=== PATIENT | female | born 1990 | race Caucasian/White ===

== ENCOUNTER 2016-08-28 19:05 | Emergency (ER) | payer BC, OTHER ==
[2016-08-28] MEDS ORDERED: Sodium Chloride 0.9% 1,000 ML IV ONE ×2 (19:28→19:29)
[2016-08-28] MEDS ORDERED: Ondansetron 4 MG/2 ML SDV IVPUSH ONE (19:30)
[2016-08-28] MEDS ORDERED: HYDROmorphone 1 MG/ML Syringe IVPUSH ONE (19:30)
[2016-08-28] MEDS ORDERED: Ketorolac 30 MG/ML SDV IVPUSH ONE (19:30)
--- NOTE | 2016-08-28 19:34 | EDM.PDOC ---
ED HPI GENERAL MEDICAL PROBLEM - General Chief Complaint: ENT Problem Stated Complaint: PT HAS SORE THROAT Time Seen by Provider: 08/28/16 19:25 - History of Present Illness INITIAL COMMENTS - FREE TEXT/NARRATIVE: HISTORY AND PHYSICAL: History of present illness: Patient 26-year-old female who is status post tonsillectomy last Friday presents with a concern of decreased by mouth intake and generalized weakness she denies fever chills nausea vomiting she has been using Tylenol with hydrocodone for pain without significant improvement. She denies abdominal pain chest pain extremity pain or other concern Review of systems: As per history of present illness and below otherwise all systems reviewed and negative. Past medical history: As per history of present illness and as reviewed below otherwise noncontributory. Surgical history: As per history of present illness and as reviewed below otherwise noncontributory. Social history: No reported history of drug or alcohol abuse. Family history: As per history of present illness and as reviewed below otherwise noncontributory. Physical exam: HEENT: Atraumatic, normocephalic, pupils reactive, negative for conjunctival pallor or scleral icterus, mucous membranes dry, throat with normal postop granular plaques no bleeding no peritonsillar fullness no uvular deviation, neck supple, nontender, trachea midline. Lungs: Clear to auscultation, breath sounds equal bilaterally, chest nontender. Heart: S1S2, regular, negative for clicks, rubs, or JVD. Abdomen: Soft, nondistended, nontender. Negative for masses or hepatosplenomegaly. Negative for costovertebral tenderness. Pelvis: Stable nontender. Genitourinary: Deferred. Rectal: Deferred. Extremities: Atraumatic, negative for cords or calf pain. Neurovascular unremarkable. Neuro: Awake, alert, oriented. Cranial nerves II through XII unremarkable. Cerebellum unremarkable. Motor and sensory unremarkable throughout. Exam nonfocal. Diagnostics: CBC CMP hCG Therapeutics: Normal saline 2 L bolus Dilaudid 1 mg IV Zofran 4 mg IV Toradol 30 mg IV Impression: #1 observation status post tonsillectomy #2 postoperative pain #3 dehydration Definitive disposition and diagnosis as appropriate pending reevaluation and review of above. Throat Pain Score (Numeric/FACES): 10 - Related Data Allergies Allergy/AdvReac Type Severity Reaction Status Date / Time No Known Allergies Allergy Verified 08/28/16 19:25 Home Meds: Home Meds . [No Known Home Meds] 08/28/16 [History] Past Medical History - Past Health History Medical/Surgical History: Denies Medical/Surgical History - Infectious Disease History Infectious Disease History: Reports: Chicken Pox - Past Surgical History Female Surgical History: Reports: Section Social & Family History - Family History Family Medical History: Noncontributory - Tobacco Use Smoking Status *Q: Never Smoker Second Hand Smoke Exposure: No - Caffeine Use Caffeine Use: Reports: None - Alcohol Use Days Per Week of Alcohol Use: 0 Number of Drinks Per Day: 0 Total Drinks Per Week: 0 - Recreational Drug Use Recreational Drug Use: No Drug Use in Last 12 Months: No ED ROS GENERAL - Review of Systems Review Of Systems: ROS reveals no pertinent complaints other than HPI. ED EXAM, GENERAL - Physical Exam Exam: See Below (See dictation) Course - Vital Signs Last Recorded V/S: Last Vital Signs Temp 36.5 C 08/28/16 19:15 Pulse 83 08/28/16 20:54 Resp 18 08/28/16 20:54 BP 95/45 L 08/28/16 20:54 Pulse Ox 97 08/28/16 20:54 - Orders/Labs/Meds Labs: Laboratory Tests 08/28/16 08/28/16 08/28/16 Range/Units 19:56 19:56 19:56 WBC 9.67 (4.0-11.0) K/uL RBC 4.85 (4.30-5.90) M/uL Hgb 13.2 (12.0-16.0) g/dL Hct 39.8 (36.0-46.0) % MCV 82.1 (80.0-98.0) fL MCH 27.2 (27.0-32.0) pg MCHC 33.2 (31.0-37.0) g/dL RDW Std Deviation 40.6 (28.0-62.0) fl RDW Coeff of Vern 14 (11.0-15.0) % Plt Count 377 (150-400) K/uL MPV 9.10 (7.40-12.00) fL Neut % (Auto) 59.2 (48.0-80.0) % Lymph % (Auto) 31.6 (16.0-40.0) % [place] % (Auto) 7.9 (0.0-15.0) % Eos % (Auto) 1.1 (0.0-7.0) % Baso % (Auto) 0.2 (0.0-1.5) % Neut # (Auto) 5.7 (1.4-5.7) K/uL Lymph # (Auto) 3.1 H (0.6-2.4) K/uL [place] # (Auto) 0.8 (0.0-0.8) K/uL Eos # (Auto) 0.1 (0.0-0.7) K/uL Baso # (Auto) 0.0 (0.0-0.1) K/uL Nucleated RBC % 0.0 /100WBC Nucleated RBCs # 0 K/uL Sodium 139 (136-146) mmol/L Potassium 3.9 (3.5-5.1) mmol/L Chloride 108 (98-110) mmol/L Carbon Dioxide 21 (21-31) mmol/L BUN 9 (6.0-23.0) mg/dL Creatinine 0.8 (0.6-1.5) mg/dL Est Cr Clr Drug Dosing 109.38 mL/min Estimated GFR (MDRD) > 60.0 ml/min Glucose 88 (60-110) mg/dL Calcium 9.1 (8.8-10.8) mg/dL Total Bilirubin 0.4 (0.1-1.5) mg/dL AST 17 (5-40) IU/L ALT 15 (8-54) IU/L Alkaline Phosphatase 64 (40-150) Total Protein 7.5 (6.0-8.0) g/dL Albumin 4.1 (3.5-5.0) g/dL Globulin 3.4 (2.0-3.5) g/dL Albumin/Globulin Ratio 1.2 L (1.3-2.8) HCG, Qual NEGATIVE (NEG) Meds: Medications Discontinued Medications Generic Name Dose Route Start Last Admin Trade Name Freq PRN Reason Stop Dose Admin Hydromorphone HCl 1 mg 08/28/16 19:30 08/28/16 20:01 Dilaudid IVPUSH 08/28/16 19:31 1 mg ONETIME ONE Administration Sodium Chloride 1,000 mls @ 999 mls/hr 08/28/16 19:28 08/28/16 19:56 Normal Saline IV 08/28/16 20:28 999 mls/hr .Bolus ONE Administration Sodium Chloride 1,000 mls @ 999 mls/hr 08/28/16 19:29 08/28/16 19:57 Normal Saline IV 08/28/16 20:29 999 mls/hr .Bolus ONE Administration Ketorolac Tromethamine 30 mg 08/28/16 19:30 08/28/16 20:00 Toradol IVPUSH 08/28/16 19:31 30 mg ONETIME ONE Administration Ondansetron HCl 4 mg 08/28/16 19:30 08/28/16 19:58 Zofran IVPUSH 08/28/16 19:31 4 mg ONETIME ONE Administration Departure - Departure Time of Disposition: 21:05 Disposition: Home, Self-Care 01 Condition: Good Clinical Impression: History of tonsillectomy, Dehydration, Postoperative pain - Discharge Information Forms: ED Department Discharge Additional Instructions: The following information is given to patients seen in the emergency department who are being discharged to home. This information is to outline your options for follow-up care. We provide all patients seen in our emergency department with a follow-up referral. The need for follow-up, as well as the timing and circumstances, are variable depending upon the specifics of your emergency department visit. If you don't have a primary care physician on staff, we will provide you with a referral. We always advise you to contact your personal physician following an emergency department visit to inform them of the circumstance of the visit and for follow-up with them and/or the need for any referrals to a consulting specialist. The emergency department will also refer you to a specialist when appropriate. This referral assures that you have the opportunity for followup care with a specialist. All of these measure are taken in an effort to provide you with optimal care, which includes your followup. Under all circumstances we always encourage you to contact your private physician who remains a resource for coordinating your care. When calling for followup care, please make the office aware that this follow-up is from your recent emergency room visit. If for any reason you are refused follow-up, please contact the [facility] emergency department at and asked to speak to the emergency department charge nurse. Continue current medications push fluids follow-up with primary medical doctor/ ENT return as needed as discussed
[2016-08-28 20:25] LABS: CHLORIDE,CL 108 mmol/L (98-110); SODIUM,NA 139 mmol/L (136-146)
[2016-08-28 21:30] VITALS: BP 120/66
== END 2016-08-28 21:30 | disposition home or self-care (01) ==
LOC: MW.ED 19:05
DX: G89.18 Other acute postprocedural pain (principal); E86.0 Dehydration; Z98.890 Other specified postprocedural states
CPT/HCPCS: 36415; 80053; 84703; 85025; 96361; 96374; 96375; 99283; J1170; J1885; J2405; J7040; 99284

== ENCOUNTER 2016-09-04 19:14 | Emergency (ER) | payer BC ==
[2016-09-04 19:27] VITALS: BP 126/85
== END 2016-09-04 19:32 | disposition left against medical advice (07) ==
LOC: MW.ED 19:14
DX: Z53.21 Procedure and treatment not carried out due to patient leaving prior to being seen by health care provider (principal)

== ENCOUNTER 2018-06-02 16:44 | Emergency (ER) | payer MEDICAID | END 2018-06-02 17:25 | disposition left against medical advice (07) | LOC: MW.ED 16:44 | DX: Z53.21 Procedure and treatment not carried out due to patient leaving prior to being seen by health care provider (principal) | CPT/HCPCS: 99281 ==

== ENCOUNTER 2018-07-10 04:49 | Inpatient (IN) | payer MEDICAID ==
[2018-07-10] MEDS ORDERED: Sodium Chloride 0.9% 2.5 ML Syringe FLUSH PRN (04:52)
[2018-07-10] MEDS ORDERED: Citric Acid/Sodium Citrate Solution 30 ML Cup PO ONE (04:52)
[2018-07-10] MEDS ORDERED: Sodium Chloride 0.9% 10 ML SDV IV PRN (04:52)
[2018-07-10] MEDS ORDERED: Sodium Chloride 0.9% 10 ML Syringe FLUSH PRN (04:52)
[2018-07-10] MEDS ORDERED: Oxytocin/0.9 % Sodium Chloride 30 UNIT/500 ML BAG IV SCH (05:00)
[2018-07-10] MEDS: Lactated Ringers 1,000 ML IV SCH ×3 (06:07→07:36)
[2018-07-10] MEDS ORDERED: Morphine PF 10 MG/10 ML SDV ONE (06:18)
--- NOTE | 2018-07-10 06:31 | PCM.PREANE ---
Preanesthetic Assessment - Anesthesia/Transfusion/Family Hx Anesthesia History: Prior Anesthesia Reaction (high spinal 4 years ago with last c/s) Type of Anesthesia Reaction: Other (see below) Other Type of Anesthesia Reaction Comment: Denies any known problem in past, no known family history,"motion sickness" Family History of Anesthesia Reaction: No Transfusion History: No Prior Transfusion(s) Intubation History: Unknown - Review of Systems General: No Symptoms Pulmonary: No Symptoms Cardiovascular: No Symptoms Gastrointestinal: Other (morbid obesity) Neurological: No Symptoms Other: Reports: None - Physical Assessment NPO Status Date: 07/10/18 NPO Status Time: 00:00 Height: 5 ft 7 in Weight: 303 kg ASA Class: 3 Mental Status: Alert & Oriented x3 Airway Class: Mallampati = 2 Dentition: Reports: Normal Dentition ROM/Head Extension: Full Lungs: Clear to Auscultation, Normal Respiratory Effort Cardiovascular: Regular Rate, Regular Rhythm - Lab Values: Laboratory Last Values WBC 12.04 K/uL (4.0-11.0) H 07/10/18 06:01 RBC 4.25 M/uL (4.30-5.90) L 07/10/18 06:01 Hgb 10.9 g/dL (12.0-16.0) L 07/10/18 06:01 Hct 34.2 % (36.0-46.0) L 07/10/18 06:01 MCV 80.5 fL (80.0-98.0) 07/10/18 06:01 MCH 25.6 pg (27.0-32.0) L 07/10/18 06:01 MCHC 31.9 g/dL (31.0-37.0) 07/10/18 06:01 RDW Std Deviation 44.9 fl (28.0-62.0) 07/10/18 06:01 RDW Coeff of Vern 16 % (11.0-15.0) H 07/10/18 06:01 Plt Count 344 K/uL (150-400) 07/10/18 06:01 MPV 9.70 fL (7.40-12.00) 07/10/18 06:01 Nucleated RBC % 0.0 /100WBC 07/10/18 06:01 Nucleated RBCs # 0 K/uL 07/10/18 06:01 - Allergies Allergies/Adverse Reactions: Allergies Allergy/AdvReac Type Severity Reaction Status Date / Time No Known Allergies Allergy Verified 07/07/18 11:03 - Blood Blood Available: No Product(s) Available: None - Anesthesia Plan Pre-Op Medication Ordered: None - Acknowledgements Anesthesia Type Planned: Spinal Pt an Appropriate Candidate for the Planned Anesthesia: Yes Alternatives and Risks of Anesthesia Discussed w Pt/Guardian: Yes Pt/Guardian Understands and Agrees with Anesthesia Plan: Yes PreAnesthesia Questionnaire - Past Health History Medical/Surgical History: Denies Medical/Surgical History HEENT History: Reports: None Cardiovascular History: Reports: None Respiratory History: Reports: None Gastrointestinal History: Other Gastrointestinal History: heartburn during Genitourinary History: Reports: None [employer]IST History: Reports: Musculoskeletal History: Reports: Fracture Other Musculoskeletal History: hx fx collarbone Neurological History: Reports: None Psychiatric History: Reports: None Endocrine/Metabolic History: Reports: Obesity/BMI 30+ Hematologic History: Reports: None Immunologic History: Reports: None Oncologic (Cancer) History: Reports: None Dermatologic History: Reports: None - Infectious Disease History Infectious Disease History: Reports: Chicken Pox - Past Surgical History Head Surgeries/Procedures: Reports: None HEENT Surgical History: Reports: Tonsillectomy Cardiovascular Surgical History: Reports: None Respiratory Surgical History: Reports: None GI Surgical History: Reports: None Female Surgical History: Reports: Section Endocrine Surgical History: Reports: None Neurological Surgical History: Reports: None Musculoskeletal Surgical History: Reports: None Oncologic Surgical History: Reports: None Dermatological Surgical History: Reports: None - SUBSTANCE USE Smoking Status *Q: Never Smoker Tobacco Use Within Last Twelve Months: Cigarettes Second Hand Smoke Exposure: No Recreational Drug Use History: No - HOME MEDS Home Medications: Home Meds Vits #93/Iron Fum/FA [ Formula Tablet] 1 each PO DAILY [History] Omeprazole Magnesium [Prilosec Otc] 20 mg PO ASDIRECTED PRN 07/04/18 [History] - CURRENT (IN HOUSE) MEDS Current Meds: Current Medications Lactated Ringer's (Ringers, Lactated) 1,000 mls @ 500 mls/hr IV BOLUS MOUNIKA Last Admin: 07/10/18 06:07 Dose: 999 mls/hr Oxytocin/Sodium Chloride (Oxytocin 30 Unit/500 Ml-Ns) 30 unit in 500 mls @ 250 mls/hr IV TITRATE MOUNIKA Sodium Chloride (Saline Flush) 10 ml FLUSH ASDIRECTED PRN PRN Reason: Keep Vein Open Sodium Chloride (Saline Flush) 2.5 ml FLUSH ASDIRECTED PRN PRN Reason: Keep Vein Open Sodium Chloride (Normal Saline) 10 ml IV ASDIRECTED PRN PRN Reason: IV Use Discontinued Medications Citric Acid/Sodium Citrate (Bicitra Solution) 30 ml PO ONETIME ONE Stop: 07/10/18 04:53 Cefazolin Sodium/Dextrose 3 gm (/ Premix) 75 mls @ 100 mls/hr IV ONETIME ONE Stop: 07/10/18 05:21 Morphine Sulfate (Duramorph Pf) Confirm Administered Dose 10 mg .ROUTE .STK-MED ONE Stop: 07/10/18 06:19
[2018-07-10] MEDS ORDERED: Promethazine 25 MG/ML SDV IM ONE (07:23)
[2018-07-10] MEDS ORDERED: fentaNYL 100 MCG/2 ML SDV IVPUSH PRN ×2 (07:23→09:42)
[2018-07-10] MEDS ORDERED: Metoclopramide 10 MG/2 ML SDV IVPUSH ONE (07:23)
[2018-07-10] MEDS ORDERED: HYDROmorphone 2 MG/ML Syringe IVPUSH ONE (07:23)
[2018-07-10] MEDS ORDERED: Ondansetron 4 MG/2 ML SDV IVPUSH ONE (07:23)
[2018-07-10] MEDS ORDERED: Octyl 2-Cyanoacrylate 1 Tube ONE (08:50)
[2018-07-10] MEDS ORDERED: ceFAZolin 1 GM Vial ONE (08:57)
[2018-07-10] MEDS ORDERED: Sodium Chloride 0.9% 20 ML ONE (08:57)
[2018-07-10] MEDS ORDERED: Phenylephrine/Normal Saline 100 MCG/ML 10 ML Syringe ONE (08:57)
[2018-07-10] MEDS ORDERED: ceFAZolin/Dextrose,Iso-Osmotic 2 GM/50 ML Duplex Bag IV ONE (08:57)
[2018-07-10] MEDS ORDERED: Ketorolac 30 MG/ML SDV ONE (08:57)
[2018-07-10] MEDS ORDERED: Oxytocin/0.9 % Sodium Chloride 30 UNIT/500 ML BAG ONE (08:57)
[2018-07-10] MEDS ORDERED: ePHEDrine 50 MG/ML SDV ONE (08:57)
[2018-07-10] MEDS ORDERED: diphenhydrAMINE 50 MG/ML SDV IVPUSH PRN ×2 (09:08→09:42)
[2018-07-10] MEDS ORDERED: Ondansetron 4 MG/2 ML SDV IVPUSH PRN ×2 (09:08→09:42)
[2018-07-10] MEDS ORDERED: Acetaminophen/oxyCODONE 325-5 MG Tab PO PRN ×2 (09:08→09:42)
[2018-07-10] MEDS ORDERED: Lanolin 100% Cream 7 GM Tube TOP PRN (09:08)
[2018-07-10] MEDS ORDERED: Bisacodyl 10 MG Supp RECTAL PRN (09:08)
[2018-07-10] MEDS ORDERED: Lactated Ringers 1,000 ML IV SCH (09:15)
--- NOTE | 2018-07-10 09:18 | PCM.OPNOTE ---
- General Post-Op/Procedure Note Date of Surgery/Procedure: 07/10/18 Operative Procedure(s): Repeat LTCS Findings: Viable female, APGARs 8, 8 weight 3498 gm. Delivery intact placenta with 3 V cord Pre Op Diagnosis: 39 week IUP. Previous c section x 2-desires repeat Post-Op Diagnosis: Same Anesthesia Technique: Spinal Primary Surgeon: Lavonne Beal Fluid Replacement, Intraop: 1,700 EBL in mLs: 600 Complications: none known Condition: Stable Free Text/Narrative:: Dictation [id number]
[2018-07-10] MEDS ORDERED: Naloxone 0.4 MG/ML Syringe IVPUSH PRN (09:42)
[2018-07-10] MEDS: Nalbuphine 10 MG/1 ML Vial IVPUSH PRN ×2 (10:08→18:28)
--- NOTE | 2018-07-10 10:13 | PCM.POSTAN ---
POST ANESTHESIA ASSESSMENT - MENTAL STATUS Mental Status: Alert, Oriented - VITAL SIGNS Pulse Rate: 80 SaO2: 99 Resp Rate: 18 Blood Pressure: 108/60 - RESPIRATORY Respiratory Status: Respiratory Rate WNL, Airway Patent, O2 Saturation Stable - CARDIOVASCULAR CV Status: Pulse Rate WNL, Blood Pressure Stable - GASTROINTESTINAL GI Status: No Symptoms - PAIN Pain Score: 0 - POST OP HYDRATION Hydration Status: Adequate & Stable (Able to move lower extremites. No anesthesia complications)
--- NOTE | 2018-07-10 13:54 | OR ---
SURGEON: Lavonne Beal M.D. DATE OF PROCEDURE: 07/10/2018 PREOPERATIVE DIAGNOSES: 1. A 39-week intrauterine . 2. Previous section x2, desires repeat. POSTOPERATIVE DIAGNOSES: 1. A 39-week intrauterine . 2. Previous section x2, desires repeat. PROCEDURE: Repeat low-transverse section. ANESTHESIA: Spinal. ESTIMATED BLOOD LOSS: 600 mL. FLUIDS: 1700 mL, crystalloid. COMPLICATIONS: None known. FINDINGS: Viable female. scores 8 at 1 minute, 8 at 5 minutes. Weight 3498 g. Upon delivery, intact placenta, 3-vessel cord. DISPOSITION: The patient to PACU, stable. Infant in LDRP with mother. PROCEDURE DETAILS: Kenyatta is a 28-year-old, G3, P2, at 39 weeks' gestational age, who presents this morning for scheduled repeat delivery. Risks of procedure have been discussed. Proper consent obtained. The patient was taken to the operating room where she underwent spinal anesthetic, was placed in dorsal supine position with leftward tilt. SCDs to lower extremities. Toure to gravity. Was prepped and draped in the usual sterile fashion. Anesthesia was tested after being prepped and draped in usual sterile fashion and found to be adequate. Previous Pfannenstiel scar was now excised. Subcutaneous tissue was incised down to level of the rectus fascia, which was incised along the midline. The subcutaneous tissue was now extended laterally on either side and as well as a fascial incision. The superior aspect of fascia was tented upward, was dissected sharply and bluntly from underlying muscles. Similar aspect performed at the inferior aspect of fascia. Rectus muscles were in the midline. Peritoneum was tented upward and entered. There was a fair amount of uterovesical adhesions and some peritoneal adhesions to the mid fundus of the uterus. These were sharply and bluntly lysed in order to allow access to the lower uterine segment. After lysing the adhesions, the rectus muscle and peritoneum were now lateralized bluntly. A self-retaining retractor was gently placed. A bladder flap was created and mobilized away from the lower uterine segment. Low transverse hysterotomy was now performed. Uterine cavity was entered bluntly with scalpel. Amniotomy was performed. Clear fluid was noted. Hysterotomy was lateralized bluntly. The 's head was flexed, delivered from the pelvis. Fundal pressure was applied. The infant's head was delivered followed by shoulders and remainder of the body without difficulty. The infant's oropharynx and nares bulb suctioned. The infant was crying vigorously. The cord was clamped x2 and cut. The was handed off to attending nursing staff. Cord arterial, cord venous, cord blood sampling obtained. The placenta was now delivered. Uterine cavity was cleared of all clot and debris. Uterus was involuting nicely. The hysterotomy was repaired using 0 Vicryl continuous running locked fashion followed by re-imbricating layer. Any areas of oozing were cauterized along the serosal edges. Posterior aspect of the uterus was inspected, no defects or hematomas found to be forming. Region was well irrigated, suction dried. Uterus returned to abdominal cavity. Colonic gutters were cleared of all clot and debris, well irrigated, suction dried. Hysterotomy once again inspected, found to be hemostatic. Self-retaining retractor was gently removed. Bladder blade was placed. Hysterotomy was again inspected and found to be hemostatic. Bladder blade was removed. Rectus muscle and peritoneum were reapproximated using 0 Vicryl in inverted mattress suture technique. Anterior aspect of the muscle and posterior aspect of the fascia were closely inspected. Any areas of oozing were cauterized. The rectus fascia was reapproximated using 0 Vicryl in continuous running fashion beginning laterally on each side and meeting in the midline. Subcutaneous tissues reapproximated using 3-0 plain in subcuticular fashion after performing copious irrigation of the region and cauterizing any areas of oozing. Subcu tissue appeared hemostatic at this juncture after closing with the 3-0 plain. The skin edges were now reapproximated using 3-0 Vicryl on a Addison needle in subcuticular fashion followed by Dermabond. Uterus was massaged, is firm. Sponge, instrument, and needle count was correct x2. The patient had tolerated the procedure well overall. She had some initial quite acute anxiety directly after the spinal, however, did respond to verbal reasoning and became more relaxed and did well with the remainder of the procedure. CHRISTIE / LEIGHTON /[id number]
[2018-07-10] MEDS: Ketorolac 30 MG/ML SDV IVPUSH SCH ×3 (14:04→20:59)
[2018-07-10] MEDS: Docusate Sodium 100 MG Cap PO SCH (20:59)
[2018-07-11] MEDS: Ketorolac 30 MG/ML SDV IVPUSH SCH ×2 (03:32→09:11)
--- NOTE | 2018-07-11 08:12 | PCM48HPAN ---
Post Anesthesia Note - EVALUATION WITHIN 48HRS OF ANESTHETIC Vital Signs in Normal Range: Yes Patient Participated in Evaluation: Yes Respiratory Function Stable: Yes Airway Patent: Yes Cardiovascular Function Stable: Yes Hydration Status Stable: Yes Pain Control Satisfactory: Yes Nausea and Vomiting Control Satisfactory: Yes Mental Status Recovered: Yes Pulse Rate: 80 Resp Rate: 14 Blood Pressure: 108/60
[2018-07-11] MEDS: Docusate Sodium 100 MG Cap PO SCH ×2 (09:11→20:58)
--- NOTE | 2018-07-11 10:59 | PCM.PN ---
- General Info Date of Service: 07/11/18 Admission Dx/Problem (Free Text): POD#1 repeat Functional Status: Reports: Pain Controlled - Review of Systems General: Reports: No Symptoms Gastrointestinal: Reports: No Symptoms Genitourinary: Reports: No Symptoms (very little vaginal bleeding.) - Patient Data Vitals - Most Recent: Last Vital Signs Temp 36.6 C 07/11/18 07:00 Pulse 80 07/11/18 08:11 Resp 14 07/11/18 08:11 BP 108/60 07/11/18 08:11 Pulse Ox 96 07/11/18 08:00 Weight - Most Recent: 137.438 kg I&O - Last 24 Hours: Intake & Output 07/10/18 07/11/18 07/11/18 22:59 06:59 14:59 Intake Total 745 Output Total 1300 1100 1350 Balance -555 -1100 -1350 Lab Results Last 24 Hours: Laboratory Results - last 24 hr 07/11/18 Range/Units 05:42 Hgb 8.6 L (12.0-16.0) g/dL Hct 27.4 L (36.0-46.0) % Med Orders - Current: Current Medications Bisacodyl (Dulcolax) 10 mg RECTAL ONETIME PRN PRN Reason: Constipation Diphenhydramine HCl (Benadryl) 25 mg IVPUSH Q6H PRN PRN Reason: Itching or Nausea Docusate Sodium (Colace) 100 mg PO BID [facility] Last Admin: 07/11/18 09:11 Dose: 100 mg Emollient Ointment (Lansinoh Hpa) 0 gm TOP ASDIRECTED PRN PRN Reason: Sore Nipples Fentanyl (Sublimaze) 50 mcg IVPUSH Q1H PRN PRN Reason: Pain (severe 7-10) Lactated Ringer's (Ringers, Lactated) 1,000 mls @ 500 mls/hr IV BOLUS [facility] Last Admin: 07/10/18 07:36 Dose: 999 mls/hr Oxytocin/Sodium Chloride (Oxytocin 30 Unit/500 Ml-Ns) 30 unit in 500 mls @ 250 mls/hr IV TITRATE MOUNIKA Lactated Ringer's (Ringers, Lactated) 1,000 mls @ 125 mls/hr IV ASDIRECTED [facility] Ibuprofen (Motrin) 800 mg PO Q8H PRN PRN Reason: mild pain or fever Nalbuphine HCl (Nubain) 5 mg IVPUSH ASDIRECTED PRN PRN Reason: Itching Last Admin: 07/10/18 18:28 Dose: 5 mg Ondansetron HCl (Zofran) 4 mg IVPUSH Q4H PRN PRN Reason: Nausea/Vomiting Ondansetron HCl (Zofran) 4 mg IVPUSH Q6H PRN PRN Reason: Nausea Oxycodone/Acetaminophen (Percocet 325-5 Mg) 1 tab PO Q4H PRN PRN Reason: Pain (moderate 4-6) Oxycodone/Acetaminophen (Percocet 325-5 Mg) 2 tab PO Q4H PRN PRN Reason: Pain (moderate 4-6) Oxycodone/Acetaminophen (Percocet 325-5 Mg) 2 tab PO Q6H PRN PRN Reason: Pain (moderate 4-6) Sodium Chloride (Saline Flush) 10 ml FLUSH ASDIRECTED PRN PRN Reason: Keep Vein Open Sodium Chloride (Saline Flush) 2.5 ml FLUSH ASDIRECTED PRN PRN Reason: Keep Vein Open Sodium Chloride (Normal Saline) 10 ml IV ASDIRECTED PRN PRN Reason: IV Use Discontinued Medications Cefazolin Sodium (Ancef) Confirm Administered Dose 1 gm .ROUTE .STK-MED ONE Stop: 07/10/18 08:58 Cefazolin Sodium/Dextrose (Ancef) Confirm Administered Dose 2 gm IV .STK-MED ONE Stop: 07/10/18 08:58 Citric Acid/Sodium Citrate (Bicitra Solution) 30 ml PO ONETIME ONE Stop: 07/10/18 04:53 Last Admin: 07/10/18 20:26 Dose: Not Given Diphenhydramine HCl (Benadryl) 25 mg IVPUSH Q4H PRN PRN Reason: Itching Stop: 07/11/18 09:42 Ephedrine Sulfate (Ephedrine Sulfate) Confirm Administered Dose 50 mg .ROUTE .STK-MED ONE Stop: 07/10/18 08:58 Fentanyl (Sublimaze) 50 mcg IVPUSH Q5M PRN PRN Reason: Pain (severe 7-10) Stop: 07/11/18 07:24 Hydromorphone HCl (Dilaudid) 2 mg IVPUSH ONETIME ONE Stop: 07/10/18 07:24 Last Admin: 07/10/18 20:26 Dose: Not Given Cefazolin Sodium/Dextrose 3 gm (/ Premix) 75 mls @ 100 mls/hr IV ONETIME ONE Stop: 07/10/18 05:21 Last Admin: 07/10/18 20:26 Dose: Not Given Sodium Chloride (Normal Saline) Confirm Administered Dose 20 mls @ as directed .ROUTE .STK-MED ONE Stop: 07/10/18 08:58 Oxytocin/Sodium Chloride (Oxytocin 30 Unit/500 Ml-Ns) Confirm Administered Dose 30 unit in 500 mls @ as directed .ROUTE .ST-MED ONE Stop: 07/10/18 08:58 Ketorolac Tromethamine (Toradol) Confirm Administered Dose 30 mg .ROUTE .ST- MED ONE Stop: 07/10/18 08:58 Ketorolac Tromethamine (Toradol) 30 mg IVPUSH Q6H MOUNIKA Stop: 07/11/18 09:16 Last Admin: 07/11/18 09:11 Dose: 30 mg Metoclopramide HCl (Reglan) 10 mg IVPUSH ONETIME ONE Stop: 07/10/18 07:24 Last Admin: 07/10/18 20:26 Dose: Not Given Morphine Sulfate (Duramorph Pf) Confirm Administered Dose 10 mg .ROUTE .STK-MED ONE Stop: 07/10/18 06:19 Naloxone HCl (Narcan) 0.1 mg IVPUSH ONETIME PRN PRN Reason: Respiratory Depression Stop: 07/11/18 09:42 Octyl Cyanoacrylate (Dermabond Advance) Confirm Administered Dose 1 applic .ROUTE .ST-MED ONE Stop: 07/10/18 08:51 Last Admin: 07/10/18 20:27 Dose: Not Given Ondansetron HCl (Zofran) 4 mg IVPUSH ONETIME ONE Stop: 07/10/18 07:24 Last Admin: 07/10/18 20:26 Dose: Not Given Phenylephrine HCl (Phenylephrine In Ns 100 Mcg/Ml) Confirm Administered Dose 2 mg .ROUTE .STK-MED ONE Stop: 07/10/18 08:58 Promethazine HCl (Phenergan) 12.5 mg IM ONETIME ONE Stop: 07/10/18 07:24 Last Admin: 07/10/18 20:26 Dose: Not Given - Exam General: Alert, Oriented, Cooperative, No Acute Distress Neck: Supple GI/Abdominal Exam: Soft, Non-Tender (Bandage clean and dry. Uterus firm and non -tender.) - Problem List Review Problem List Initiated/Reviewed/Updated: No - Assessment Assessment:: Good POD#1 recovery Hgb 8.6, completely asymptomatic. Ambulating fine. Risks and precautions discussed. - Plan Plan:: Continue cares.
[2018-07-11] MEDS: Ibuprofen 800 MG Tab PO PRN (16:10)
[2018-07-11] MEDS: Acetaminophen/oxyCODONE 325-5 MG Tab PO PRN (16:11)
[2018-07-12] MEDS: Ibuprofen 800 MG Tab PO PRN ×2 (02:32→10:47)
[2018-07-12 07:24] VITALS: BP 116/59
[2018-07-12] MEDS: Docusate Sodium 100 MG Cap PO SCH (08:12)
[2018-07-12] MEDS: Acetaminophen/oxyCODONE 325-5 MG Tab PO PRN (08:16)
--- NOTE | 2018-07-12 10:19 | PCM.PN ---
- General Info Date of Service: 07/12/18 (PPD#2 repeat LTCS) Functional Status: Reports: Pain Controlled, Tolerating Diet, Ambulating - Review of Systems General: Reports: No Symptoms Gastrointestinal: Reports: No Symptoms Genitourinary: Reports: No Symptoms - Patient Data Vitals - Most Recent: Last Vital Signs Temp 36.4 C 07/12/18 07:00 Pulse 85 07/12/18 07:00 Resp 16 07/12/18 07:00 BP 116/59 L 07/12/18 07:00 Pulse Ox 97 07/12/18 07:00 Weight - Most Recent: 137.438 kg Med Orders - Current: Current Medications Bisacodyl (Dulcolax) 10 mg RECTAL ONETIME PRN PRN Reason: Constipation Diphenhydramine HCl (Benadryl) 25 mg IVPUSH Q6H PRN PRN Reason: Itching or Nausea Docusate Sodium (Colace) 100 mg PO BID [facility] Last Admin: 07/12/18 08:12 Dose: 100 mg Emollient Ointment (Lansinoh Hpa) 0 gm TOP ASDIRECTED PRN PRN Reason: Sore Nipples Fentanyl (Sublimaze) 50 mcg IVPUSH Q1H PRN PRN Reason: Pain (severe 7-10) Lactated Ringer's (Ringers, Lactated) 1,000 mls @ 500 mls/hr IV BOLUS [facility] Last Admin: 07/10/18 07:36 Dose: 999 mls/hr Oxytocin/Sodium Chloride (Oxytocin 30 Unit/500 Ml-Ns) 30 unit in 500 mls @ 250 mls/hr IV TITRATE [facility] Lactated Ringer's (Ringers, Lactated) 1,000 mls @ 125 mls/hr IV ASDIRECTED [facility] Ibuprofen (Motrin) 800 mg PO Q8H PRN PRN Reason: mild pain or fever Last Admin: 07/12/18 02:32 Dose: 800 mg Nalbuphine HCl (Nubain) 5 mg IVPUSH ASDIRECTED PRN PRN Reason: Itching Last Admin: 07/10/18 18:28 Dose: 5 mg Ondansetron HCl (Zofran) 4 mg IVPUSH Q4H PRN PRN Reason: Nausea/Vomiting Ondansetron HCl (Zofran) 4 mg IVPUSH Q6H PRN PRN Reason: Nausea Oxycodone/Acetaminophen (Percocet 325-5 Mg) 1 tab PO Q4H PRN PRN Reason: Pain (moderate 4-6) Last Admin: 07/12/18 08:16 Dose: 1 tab Oxycodone/Acetaminophen (Percocet 325-5 Mg) 2 tab PO Q4H PRN PRN Reason: Pain (moderate 4-6) Last Admin: 07/11/18 21:37 Dose: 2 tab Oxycodone/Acetaminophen (Percocet 325-5 Mg) 2 tab PO Q6H PRN PRN Reason: Pain (moderate 4-6) Sodium Chloride (Saline Flush) 10 ml FLUSH ASDIRECTED PRN PRN Reason: Keep Vein Open Sodium Chloride (Saline Flush) 2.5 ml FLUSH ASDIRECTED PRN PRN Reason: Keep Vein Open Sodium Chloride (Normal Saline) 10 ml IV ASDIRECTED PRN PRN Reason: IV Use Discontinued Medications Cefazolin Sodium (Ancef) Confirm Administered Dose 1 gm .ROUTE .STK-MED ONE Stop: 07/10/18 08:58 Cefazolin Sodium/Dextrose (Ancef) Confirm Administered Dose 2 gm IV .STK-MED ONE Stop: 07/10/18 08:58 Citric Acid/Sodium Citrate (Bicitra Solution) 30 ml PO ONETIME ONE Stop: 07/10/18 04:53 Last Admin: 07/10/18 20:26 Dose: Not Given Diphenhydramine HCl (Benadryl) 25 mg IVPUSH Q4H PRN PRN Reason: Itching Stop: 07/11/18 09:42 Ephedrine Sulfate (Ephedrine Sulfate) Confirm Administered Dose 50 mg .ROUTE .STK-MED ONE Stop: 07/10/18 08:58 Fentanyl (Sublimaze) 50 mcg IVPUSH Q5M PRN PRN Reason: Pain (severe 7-10) Stop: 07/11/18 07:24 Hydromorphone HCl (Dilaudid) 2 mg IVPUSH ONETIME ONE Stop: 07/10/18 07:24 Last Admin: 07/10/18 20:26 Dose: Not Given Cefazolin Sodium/Dextrose 3 gm (/ Premix) 75 mls @ 100 mls/hr IV ONETIME ONE Stop: 07/10/18 05:21 Last Admin: 07/10/18 20:26 Dose: Not Given Sodium Chloride (Normal Saline) Confirm Administered Dose 20 mls @ as directed .ROUTE .STK-MED ONE Stop: 07/10/18 08:58 Oxytocin/Sodium Chloride (Oxytocin 30 Unit/500 Ml-Ns) Confirm Administered Dose 30 unit in 500 mls @ as directed .ROUTE .STK-MED ONE Stop: 07/10/18 08:58 Ketorolac Tromethamine (Toradol) Confirm Administered Dose 30 mg .ROUTE .STK- MED ONE Stop: 07/10/18 08:58 Ketorolac Tromethamine (Toradol) 30 mg IVPUSH Q6H [facility] Stop: 07/11/18 09:16 Last Admin: 07/11/18 09:11 Dose: 30 mg Metoclopramide HCl (Reglan) 10 mg IVPUSH ONETIME ONE Stop: 07/10/18 07:24 Last Admin: 07/10/18 20:26 Dose: Not Given Morphine Sulfate (Duramorph Pf) Confirm Administered Dose 10 mg .ROUTE .STK-MED ONE Stop: 07/10/18 06:19 Naloxone HCl (Narcan) 0.1 mg IVPUSH ONETIME PRN PRN Reason: Respiratory Depression Stop: 07/11/18 09:42 Octyl Cyanoacrylate (Dermabond Advance) Confirm Administered Dose 1 applic .ROUTE .STK-MED ONE Stop: 07/10/18 08:51 Last Admin: 07/10/18 20:27 Dose: Not Given Ondansetron HCl (Zofran) 4 mg IVPUSH ONETIME ONE Stop: 07/10/18 07:24 Last Admin: 07/10/18 20:26 Dose: Not Given Phenylephrine HCl (Phenylephrine In Ns 100 Mcg/Ml) Confirm Administered Dose 2 mg .ROUTE .STK-MED ONE Stop: 07/10/18 08:58 Promethazine HCl (Phenergan) 12.5 mg IM ONETIME ONE Stop: 07/10/18 07:24 Last Admin: 07/10/18 20:26 Dose: Not Given - Exam General: Alert, Oriented, Cooperative, No Acute Distress GI/Abdominal Exam: Soft, Non-Tender Extremities: Normal Inspection, Non-Tender - Problem List Review Problem List Initiated/Reviewed/Updated: Yes - Assessment Assessment:: POD#2 repeat . No c/o. Exam normal. precautions and risks discussed. D/C to home. - Plan Plan:: Discharge to home. Precautions discussed.
--- NOTE | 2018-07-12 10:24 | PCM.DCSUM1 ---
Discharge Summary - Discharge Data Discharge Date: 07/12/18 Discharge Disposition: Home, Self-Care 01 Condition: Good - Patient Summary/Data Operative Procedure(s) Performed: Repeat LTCS - Patient Instructions Diet: Regular Diet as Tolerated Activity: No Lifting Over 20 Pounds, No Strenuous Activities, Rest and Relax Today (Pelvic rest for 6 weeks) Showering/Bathing: May Shower Wound/Incision Care: Keep Operative Site/Wound Site Clean and Dry Notify Provider of: Fever, Increased Pain, Nausea and/or Vomiting Other/Special Instructions: Pelvic rest for 6 weeks. Continue PNV daily. May use OTC ibuprofen/tylenol as needed as pain - Discharge Plan Home Medications: Home Meds Vits #93/Iron Fum/FA [ Formula Tablet] 1 each PO DAILY [History] Omeprazole Magnesium [Prilosec Otc] 20 mg PO ASDIRECTED PRN 07/04/18 [History] Referrals: [facility] [Outside] Lavonne Beal MD [Physician] - 07/17/18 1:30 pm - Discharge Summary/Plan Comment DC Time >30 min.: No - Patient Data Vitals - Most Recent: Last Vital Signs Temp 36.4 C 07/12/18 07:00 Pulse 85 07/12/18 07:00 Resp 16 07/12/18 07:00 BP 116/59 L 07/12/18 07:00 Pulse Ox 97 07/12/18 07:00 Weight - Most Recent: 137.438 kg Med Orders - Current: Current Medications Bisacodyl (Dulcolax) 10 mg RECTAL ONETIME PRN PRN Reason: Constipation Diphenhydramine HCl (Benadryl) 25 mg IVPUSH Q6H PRN PRN Reason: Itching or Nausea Docusate Sodium (Colace) 100 mg PO BID [facility] Last Admin: 07/12/18 08:12 Dose: 100 mg Emollient Ointment (Lansinoh Hpa) 0 gm TOP ASDIRECTED PRN PRN Reason: Sore Nipples Fentanyl (Sublimaze) 50 mcg IVPUSH Q1H PRN PRN Reason: Pain (severe 7-10) Lactated Ringer's (Ringers, Lactated) 1,000 mls @ 500 mls/hr IV BOLUS [facility] Last Admin: 07/10/18 07:36 Dose: 999 mls/hr Oxytocin/Sodium Chloride (Oxytocin 30 Unit/500 Ml-Ns) 30 unit in 500 mls @ 250 mls/hr IV TITRATE [facility] Lactated Ringer's (Ringers, Lactated) 1,000 mls @ 125 mls/hr IV ASDIRECTED [facility] Ibuprofen (Motrin) 800 mg PO Q8H PRN PRN Reason: mild pain or fever Last Admin: 07/12/18 02:32 Dose: 800 mg Nalbuphine HCl (Nubain) 5 mg IVPUSH ASDIRECTED PRN PRN Reason: Itching Last Admin: 07/10/18 18:28 Dose: 5 mg Ondansetron HCl (Zofran) 4 mg IVPUSH Q4H PRN PRN Reason: Nausea/Vomiting Ondansetron HCl (Zofran) 4 mg IVPUSH Q6H PRN PRN Reason: Nausea Oxycodone/Acetaminophen (Percocet 325-5 Mg) 1 tab PO Q4H PRN PRN Reason: Pain (moderate 4-6) Last Admin: 07/12/18 08:16 Dose: 1 tab Oxycodone/Acetaminophen (Percocet 325-5 Mg) 2 tab PO Q4H PRN PRN Reason: Pain (moderate 4-6) Last Admin: 07/11/18 21:37 Dose: 2 tab Oxycodone/Acetaminophen (Percocet 325-5 Mg) 2 tab PO Q6H PRN PRN Reason: Pain (moderate 4-6) Sodium Chloride (Saline Flush) 10 ml FLUSH ASDIRECTED PRN PRN Reason: Keep Vein Open Sodium Chloride (Saline Flush) 2.5 ml FLUSH ASDIRECTED PRN PRN Reason: Keep Vein Open Sodium Chloride (Normal Saline) 10 ml IV ASDIRECTED PRN PRN Reason: IV Use Discontinued Medications Cefazolin Sodium (Ancef) Confirm Administered Dose 1 gm .ROUTE .STK-MED ONE Stop: 07/10/18 08:58 Cefazolin Sodium/Dextrose (Ancef) Confirm Administered Dose 2 gm IV .STK-MED ONE Stop: 07/10/18 08:58 Citric Acid/Sodium Citrate (Bicitra Solution) 30 ml PO ONETIME ONE Stop: 07/10/18 04:53 Last Admin: 07/10/18 20:26 Dose: Not Given Diphenhydramine HCl (Benadryl) 25 mg IVPUSH Q4H PRN PRN Reason: Itching Stop: 07/11/18 09:42 Ephedrine Sulfate (Ephedrine Sulfate) Confirm Administered Dose 50 mg .ROUTE .STK-MED ONE Stop: 07/10/18 08:58 Fentanyl (Sublimaze) 50 mcg IVPUSH Q5M PRN PRN Reason: Pain (severe 7-10) Stop: 07/11/18 07:24 Hydromorphone HCl (Dilaudid) 2 mg IVPUSH ONETIME ONE Stop: 07/10/18 07:24 Last Admin: 07/10/18 20:26 Dose: Not Given Cefazolin Sodium/Dextrose 3 gm (/ Premix) 75 mls @ 100 mls/hr IV ONETIME ONE Stop: 07/10/18 05:21 Last Admin: 07/10/18 20:26 Dose: Not Given Sodium Chloride (Normal Saline) Confirm Administered Dose 20 mls @ as directed .ROUTE .STK-MED ONE Stop: 07/10/18 08:58 Oxytocin/Sodium Chloride (Oxytocin 30 Unit/500 Ml-Ns) Confirm Administered Dose 30 unit in 500 mls @ as directed .ROUTE .STK-MED ONE Stop: 07/10/18 08:58 Ketorolac Tromethamine (Toradol) Confirm Administered Dose 30 mg .ROUTE .STK- MED ONE Stop: 07/10/18 08:58 Ketorolac Tromethamine (Toradol) 30 mg IVPUSH Q6H [facility] Stop: 07/11/18 09:16 Last Admin: 07/11/18 09:11 Dose: 30 mg Metoclopramide HCl (Reglan) 10 mg IVPUSH ONETIME ONE Stop: 07/10/18 07:24 Last Admin: 07/10/18 20:26 Dose: Not Given Morphine Sulfate (Duramorph Pf) Confirm Administered Dose 10 mg .ROUTE .STK-MED ONE Stop: 07/10/18 06:19 Naloxone HCl (Narcan) 0.1 mg IVPUSH ONETIME PRN PRN Reason: Respiratory Depression Stop: 07/11/18 09:42 Octyl Cyanoacrylate (Dermabond Advance) Confirm Administered Dose 1 applic .ROUTE .STK-MED ONE Stop: 07/10/18 08:51 Last Admin: 07/10/18 20:27 Dose: Not Given Ondansetron HCl (Zofran) 4 mg IVPUSH ONETIME ONE Stop: 07/10/18 07:24 Last Admin: 07/10/18 20:26 Dose: Not Given Phenylephrine HCl (Phenylephrine In Ns 100 Mcg/Ml) Confirm Administered Dose 2 mg .ROUTE .STK-MED ONE Stop: 07/10/18 08:58 Promethazine HCl (Phenergan) 12.5 mg IM ONETIME ONE Stop: 07/10/18 07:24 Last Admin: 07/10/18 20:26 Dose: Not Given
== END 2018-07-12 13:50 | disposition home or self-care (01) | DRG 788 ==
LOC: MW.OB 04:49
PROVIDERS: ADMIT Obstetrics & Gynecology; ATTEND Obstetrics & Gynecology
PROC: 10D00Z1 Extraction of Products of Conception, Low, Open Approach (ICD-10-PCS; principal; 2018-07-10)
PROC: 6A550ZT Pheresis of Cord Blood Stem Cells, Single (ICD-10-PCS; principal; 2018-07-10)
DX: O34.211 Maternal care for low transverse scar from previous cesarean delivery (principal); N85.8 Other specified noninflammatory disorders of uterus; Z37.0 Single live birth; Z3A.39 39 weeks gestation of pregnancy; O99.824 Streptococcus B carrier state complicating childbirth; O99.214 Obesity complicating childbirth; E66.9 Obesity, unspecified; Z87.891 Personal history of nicotine dependence
CPT/HCPCS: 36415; 51702; 59025; 82803; 85014; 85018; 85027; 86850; 86900; 86901; A9270-GY; J0690; J1885; J2270; J2300; J2370; J2590; J7120